=== PATIENT | female | born 1960 | race Caucasian/White ===

== ENCOUNTER 2016-06-05 17:29 | Emergency (ER) | payer SELFPAY ==
[2011-07-23 07:36] VITALS: BMI 21.9
[2016-06-05 18:26] LABS: BASOPHILS 0.2 % (0.0-2.0); EOSINOPHILS 0.8 % (0-7); HEMATOCRIT 39.6 % (36.0-48.0); HEMOGLOBIN 13.1 g/dL (12-16); IMMATURE GRANULOCYTES 0.2 % (0-5); LYMPHOCYTES 28.7 % (15-50); MCH 29.7 pg (26.0-34.0); MCHC 33.1 g/dL (31.0-37.0); MCV 89.8 fL (80.0-100.0); MEAN PLATELET VOLUME 10.7 fL (7.4-10.4); MONOCYTES 10.3 % (2-11); NEUTROPHILS 59.8 % (40-80); PLATELET COUNT 249 10x3/uL (130-400); RBC 4.41 10x6/uL (4.00-5.40); RDW 12.3 % (11.5-14.5)
[2016-06-05 18:39] LABS: ALBUMIN 4.5 g/dL (3.4-5.0); ANION GAP 10.8 mmol/L (8-16); BILIRUBIN - TOTAL 0.28 mg/dL (0.2-1.3); CARBON DIOXIDE 32.9 mmol/L (21.0-32.0); POTASSIUM - SERUM 3.7 mmol/L (3.5-5.1); PROTEIN - SERUM 8.3 g/dL (6.4-8.2)
[2016-06-05 18:53] LABS: APPEARANCE CLEAR (CLEAR); BILIRUBIN NEGATIVE (NEGATIVE); COLOR YELLOW (YELLOW); GLUCOSE NEGATIVE (NEGATIVE); KETONE NEGATIVE (NEGATIVE); LEUKOCYTE ESTERASE TRACE (NEGATIVE); NITRITE NEGATIVE (NEGATIVE); PROTEIN NEGATIVE (NEGATIVE); UROBILINOGEN NORMAL (NORMAL)
[2016-06-05 18:54] LABS: BACTERIA MANY /hpf (NONE SEEN); EPITHELIAL CELLS 0-5 /hpf (0-5); RED CELLS - URINE 0-5 /hpf (0-5)
== END 2016-06-05 19:19 | disposition left against medical advice (07) ==
LOC: D.ER 17:29
PROVIDERS: Emergency Medicine
DX: R53.1 Weakness (principal)

== ENCOUNTER 2017-12-09 17:46 | Emergency (ER) | payer MEDICAID ==
[~2017-12-09] VITALS: Ht 170.2 cm; Wt 58.6 kg
[2017-12-09 17:53] VITALS: Ht 170.2 cm; Wt 58.6 kg
[2017-12-09] MEDS ORDERED: DILANTIN100 MG (17:55)
[2017-12-09] MEDS ORDERED: HYDRALAZINE HCL10 MG (17:56)
[2017-12-09 18:33] LABS: BASOPHILS 0.3 % (0-2); EOSINOPHILS 1.3 % (0-7); HEMATOCRIT 39.8 % (36.0-48.0); HEMOGLOBIN 13.7 g/dL (12-16); LYMPHOCYTES 31.8 % (15-50); MCH 30.9 pg (26.0-34.0); MCHC 34.4 g/dL (31.0-37.0); MCV 89.8 fL (80.0-100.0); MEAN PLATELET VOLUME 10.5 fL (7.4-10.4); MONOCYTES 7.9 % (2-11); NEUTROPHILS 58.7 % (40-80); PLATELET COUNT 249 10x3/uL (130-400); RBC 4.43 10x6/uL (4.00-5.40); RDW 12.3 % (11.5-14.5); WBC 7.1 10x3/uL (4.8-10.8)
[2017-12-09 18:44] LABS: ALBUMIN 4.3 g/dL (3.4-5.0); ANION GAP 8.7 mmol/L (8-16); APTT 24.7 SECONDS (22.8-39.4); BILIRUBIN - TOTAL 0.16 mg/dL (0.2-1.3); CALCIUM 9.3 mg/dL (8.5-10.1); CARBON DIOXIDE 33.6 mmol/L (21.0-32.0); CREATININE - SERUM 0.9 mg/dL (0.6-1.3); INR 0.99 (0.85-1.17); POTASSIUM - SERUM 3.3 mmol/L (3.5-5.1); PROTEIN - SERUM 8.4 g/dL (6.4-8.2); PROTIME 12.7 SECONDS (11.6-15.0)
[2017-12-09] MEDS ORDERED: NORCO 7.5/325 T1 TA1 PO (19:33)
[2017-12-09] MEDS ORDERED: LEVOTHYROXINE75 MCG PO (19:33)
[2017-12-09 21:47] VITALS: BP 106/66
== END 2017-12-09 21:47 | disposition left against medical advice (07) ==
LOC: D.ER 17:46
PROVIDERS: Family Medicine
DX: R42 Dizziness and giddiness (principal); E87.6 Hypokalemia; R25.2 Cramp and spasm

== ENCOUNTER 2018-06-05 11:41 | Observation (INO) | payer MEDICAID ==
[~2018-06-05] VITALS: Ht 170.2 cm; Wt 60.0 kg
--- NOTE | ~2018-06-05 | OP ---
PATIENT NAME: SACHI JOE MEDICAL RECORD: [id number] :56 LOCATION:[facility] ADMISSION DATE:06/05/18 SURGEON: ADRY MANZO MD DATE OF OPERATION: 06/06/2018 PROCEDURES: Left heart catheterization, selective coronary angiography, right femoral artery approach. We were unable to advance the guide catheter through the radial catheter for probable spasm. CATHETERS: A 5-Finnish sheath, 5/4 left and right Jones, 5/4 pig. The procedure was well tolerated. The patient returned to the johnson. Sheath was removed. FINDINGS: Left ventriculography in 30-degree HUTCHINS view: Normal wall motion, normal systolic function. CORONARY ANATOMY: LEFT MAIN: Left main is free of disease. LAD: Free of disease in the diagonal system. CIRCUMFLEX: Free of disease in the marginal system. RIGHT CORONARY ARTERY: Dominant artery, gives rise to PDA, free of disease. IMPRESSION: Normal LV systolic function. Normal coronary anatomy. TRANSINT:[id number] Voice Confirmation ID: [id number] DOCUMENT ID: [id number] ADRY MANZO MD CC: [id number] DICTATION DATE: 06/06/1850 MANUFACTURING ENGINEER CHIEF: 06/06/18 1116 ADM IN [facility] [address] [place] [address]
--- NOTE | ~2018-06-05 | HEMODYNAMI ---
PATIENT:SACHI JOE MEDICAL RECORD: [id number] : 56 LOCATION:[facility] ADMISSION DATE: 06/05/18 Generatedon:06/06/20189:52 Patient name: SACHI JOE Patient #: [id number] SSN: : 1960 Date of study: 06/06/2018 Page: Of Hemodynamic Procedure Report Patient Data Patient Demographics Procedure consent was obtained First Name: SACHI Gender: Female Last Name: HEATH : 1960 Middle Initial: ROBERT Age: 57 year(s) Patient #: [id number] Race: Unknown Additional ID: [id number] Contact details Address: [address] [place] [address] State: [place] City: [facility] Zip code: [address] Past Medical History Allergies Allergen Reaction Date Comments Reported Aspirin 06/06/2018 Admission Admission Data Admission Date: 06/05/2018 Admission Time: 13:01 Room #: D.[facility]8 Height (in.): 67 BSA: 1.74 (m2) Height (cm.): 170.18 BMI: 21.97 (kg/m2) Weight (lbs.): 140.28 Weight (kg.): 63.63 Lab Results Lab Result Date: 06/06/2018 Lab Result Time: 0:00 Biochemistry Name Units Result Min Max BUN mg/dl 12 --(-*--)-- 7 18 Creatinine mg/dl 0.8 --(-*--)-- 0.6 1.3 CBC Name Units Result Min Max Hemoglobin g/dl 13.3 -*(----)-- 13.5 17.5 Procedure Procedure Types Cath Procedure Diagnostic Procedure C [facility] w/Coronaries Sedation Charges Moderate Sedation up to 15 minutes Procedure Description Procedure Date Procedure Date: 06/06/2018 Procedure Start Time: 9:32 Procedure End Time: 9:48 Procedure Staff Name Function Amos Raza MD Performing Physician Leah Tavarez RT Monitor Luh Brenner RT Scrub Cristina Melchor RN Nurse David Boland RN Inkjet Operator Procedure Data Cath Procedure Fluoroscopy Diagnostic fluoroscopy Total fluoroscopy Time: 1.7 time: 1.7 min min Diagnostic fluoroscopy Total fluoroscopy dose: 96 dose: 96 mGy mGy Contrast Material Contrast Material Type Amount (ml) Isovue 300 57 Entry Location Entry Primary Successful Side Size Upsize Upsize Entry Closure Succes sful Closure Location (Fr) 1 (Fr) 2 (Fr) Remarks Device Remarks Radial Right 6 Fr artery Short Femoral Right 5 Fr Exoseal artery Estimated blood loss: 5 ml Diagnostic catheters Device Type Used For End Catheter Placement DIAGNOSTIC Herrin 110cm 5 Procedure Fr catheter ([id number]) MULTIPACK JL 4.0 5Fr Procedure catheter MULTIPACK 3DRC 5Fr Procedure catheter MULTIPACK Pigtail 5 Fr Procedure catheter Procedure Complications No complications Procedure Medications Medication Administration Route Dosage 0.9% NaCl I.V. ml/hr Oxygen etCO2 Nasal cannula 2 l/min Lidocaine 2% added to field 20 Heparin Flush Bag added to field 2 bags (1000units/500ml NS) Radial Cocktail added to field 1 syringe (Verapomil 2mg/Nitro 400mcg/Heparin 1500units) Versed I.V. 2 mg Fentanyl I.V. 50 mcg Versed I.V. 1 mg Fentanyl I.V. 25 mcg Hemodynamics Rest BSA: 1.74 (m2) HGB: 13.3 (g/dl) O2 Consumption: Estimated: 164.98 (ml/min) O2 Co nsumption indexed: Estimated:94.82 (ml/min/m) Heart Rate: 69 (bpm) Pressure Samples Time Site Value (mmHg) Purpose Heart Use Rate(bpm) 9:44 LV 104/-7,8 Snapshot 70 Snapshots Pre Cath Intra NCS Post Cath Vital Signs Time Heart Resp SPO2 etCO2 NIBP (mmHg) Rhythm Pain Sedation Rate (ipm) (%) (mmHg) Status Level (bpm) 9:15:00 74 13 100 25 134/80(118) NSR 0 (11) 10(A) , No pain 9:19:12 70 10 100 25 133/73(105) NSR 0 (11) 10(A) , No pain 9:23:24 62 12 98 44.5 106/66(85) NSR 0 (11) 10(A) , No pain 9:27:30 65 12 97 48.4 104/62(84) NSR 0 (11) 10(A) , No pain 9:31:36 63 13 98 50.6 95/56(66) NSR 0 (11) 10(A) , No pain 9:35:37 62 14 97 52.9 88/57(81) NSR 0 (11) 9(A) , No pain 9:39:39 66 12 98 46.1 91/51(62) NSR 0 (11) 9(A) , No pain 9:43:39 71 13 97 46.1 96/62(72) NSR 0 (11) 9(A) , No pain 9:47:40 71 14 97 46.9 94/66(84) NSR 0 (11) 10(A) , No pain Medications Time Medication Route Dose Verified Delivered Reason Notes Ef fectiveness by by 9:15:30 0.9% NaCl I.V. ml/hr Amos Cristina used for Luz Marina Ruiz procedure MD KAY 9:15:37 Oxygen etCO2 2 l/min Amos Birda used for Nasal Luz Marina Ruiz procedure cannula MD KAY 9:15:43 Lidocaine 2% added 20ml Amos Trinidad for local to vial Luz Marina Luz Marina anesthetic field MD ROSE 9:15:48 Heparin Flush added 2 bags Amos Trinidad used for Bag to Luz Marina Luz Marina procedure (1000units/500ml field MD ROSE NS) 9:15:54 Radial Cocktail added 1 Amos Trinidad used for (Verapomil to syringe Luz Marina Luz Marina procedure 2mg/Nitro field MD ROSE 400mcg/Heparin 1500units) 9:27:35 Versed I.V. 2 mg Amos Cristina for Luz MarinaFlorin Melchor sedation MD KAY 9:27:40 Fentanyl I.V. 50 mcg Amos Birda for Luz MarinaFlorin Melchor sedation MD KAY 9:34:14 Versed I.V. 1 mg Amos Grimaldoyla for [facility] Florin Melchor sedation MD KAY 9:34:19 Fentanyl I.V. 25 mcg Amos Birda for [facility] Florin Melchor sedation MD KAYtransaction coordinator Log Time Note 9:00:33 David Boland RN sent for patient. Start room use. 9:04:24 Signed procedure consent form obtained from patient. 9:04:30 Diagnostic Cath status Elective 9:04:35 Time tracking: Regular hours (M-F 7:00 - 5:00) 9:04:45 Plan of Care:Hemodynamics will remain stable., Cardiac rhythm will remain stable., Comfort level will be maintained., Respiratory function will remain adequate., Patient/ family verbilizes understanding of procedure., Procedure tolerated without complication., Recovers from procedure without complications.. 9:04:59 H&P Date Dictated: 06/05/2018 H&P Addendum completed by physician on day of procedure. (MUST COMPLETE FOR ALL OUTPATIENTS). 9:05:00 Pre-procedure instructions explained to patient. 9:05:01 Pre-op teaching completed and patient verbalized understanding. 9:05:19 Patient Height : 67 inches 9:05:25 Patient Weight : 140.28 lbs 9:05:42 Patient allergic to Aspirin 9:13:52 Vital chart was started 9:14:04 Patient received from Med II to CCL 1 Alert and oriented. Tansferred to table in Supine position. 9:14:07 Warm blankets applied, and brien hugger turned on for patient comfort. 9:14:08 Correct patient and procedure confirmed by team. 9:14:27 Baseline sample Acquired. 9:14:35 Rhythm: sinus rhythm 9:14:43 Family in patients room. 9:14:50 Patient NPO since Midnight. 9:15:30 0.9% NaCl ml/hr I.V. was administered by Cristina Melchor RN; used for procedure; 9:15:37 Oxygen 2 l/min etCO2 Nasal cannula was administered by Cristina Melchor RN; used for procedure; 9:15:43 Lidocaine 2% 20ml vial added to field was administered by Amos Raza MD; for local anesthetic; 9:15:48 Heparin Flush Bag (1000units/500ml NS) 2 bags added to field was administered by Amos Raza MD; used for procedure; 9:15:54 Radial Cocktail (Verapomil 2mg/Nitro 400mcg/Heparin 1500units) 1 syringe added to field was administered by Amos Raza MD; used for procedure; 9:21:18 ECG and BP/O2 sat monitors applied to patient. 9:21:21 Full Disclosure recording started 9:21:27 Is patient on blood thinner?No 9:21:28 Patient diabetic? No. 9:21:31 Patient not . Patient is over age 55. 9:21:33 Previous problem with sedation/anesthesia? No ? 9:21:34 Snore? No 9:21:35 Sleep apnea? No 9:21:36 Deviated septum? No 9:21:37 Opens mouth fully? Yes 9:21:38 Sticks out tongue? Yes 9:21:41 Airway obstruction? Yes ASTHMA 9:21:49 Dentures? No NO TEETH 9:21:54 Modified Paresh's test Ulnar < 7 seconds 9:21:56 Patient pain scale 0/10 ?. 9:22:00 IV patent on arrival in right hand with 0.9% NaCl at [facility]. 9::23 Lab Result : BUN 12 mg/dl 9:: Lab Result : Hemoglobin 13.3 g/dl 9::23 Lab Result : Creatinine 0.8 mg/dl 9:22: Lab results completed and on chart. 9:22:30 Right Radial & Right Groin area was prepped with chlora-prep and draped in sterile fashion 9:22:31 Alarms reviewed by R. N. 9:22:31 Sharps counted by scrub and verified by R.N. 9:23:10 Use device set Radial Dx or PCI 9:23:11 ACIST Syringe (42170) opened to sterile field. 9:23:12 Bag Decanter (2002S) opened to sterile field. 9:23:12 ACIST Hand Control (15466) opened to sterile field. 9:23:13 ACIST Manifold (03890) opened to sterile field. 9:23:13 Tegaderm 4 x 4 (1626W) opened to sterile field. 9:23:15 Medline Cath Pack ([id number]) opened to sterile field. 9:23:16 DIAGNOSTIC WIRE .035 260cm J wire (218663) opened to sterile field. 9:23:16 MBrace Wrist Support ([id number]) opened to sterile field. 9:23:18 SHEATH 6FR Slender (35-5308) opened to sterile field. 9:25:57 --------ALL STOP TIME OUT------ 9:25:58 Final Timeout: patient, procedure, and site verified with staff and physician. All members of the team are in agreement. 9:26:20 Right groin site verified by team. 9:26:23 Physical assessment completed. ASA score P 2 - A patient with mild systemic disease as per Amos Raza MD. 9::26 Sedation plan: IV Moderate Sedation Medication:Versed, Fentanyl 9:27:15 Zero performed for pressure channel P1 9:27:35 Versed 2 mg I.V. was administered by Cristina Melchor RN; for sedation; 9:27:40 Fentanyl 50 mcg I.V. was administered by Cristina Melchor RN; for sedation; 9:32:01 Procedure started. 9:32:06 Local anesthetic to right radial artery with Lidocaine 2% by Amos Raza MD.INITIAL ACCESS ONLY 9:34:14 Versed 1 mg I.V. was administered by Cristina Melchor RN; for sedation; 9:34:19 Fentanyl 25 mcg I.V. was administered by Cristina Melchor RN; for sedation; 9:34:54 A 6 Fr Short sheath was inserted into the Right Radial artery 9:35:15 A DIAGNOSTIC Herrin 110cm 5 Fr catheter (406641) was advanced over the wire and used for Procedure. 9:36:31 UNABLE TO ADVANCED PAST ELBOW 9:36:33 Catheter removed. 9:37:01 Use device set Multipack Set 9:37:10 SHEATH 5FR [place] (RYT032) opened to sterile field. 9:37:12 DIAGNOSTIC Multipack 5Fr catheter set ([id number]) opened to sterile field. 9:37:23 Local anesthetic to left femerol artery with Lidocaine 2% by Amos Raza MD.ADDITIONAL ACCESS 9:37:54 A 5 Fr sheath was inserted into the Right Femoral artery 9:38:20 A MULTIPACK JL 4.0 5Fr catheter was advanced over the wire and used for Procedure. 9:41:16 LCA angiography performed. 9:41:47 Catheter removed. 9:41:55 A MULTIPACK 3DRC 5Fr catheter was advanced over the wire and used for Procedure. 9:42:47 RCA angiography performed. 9:42:51 Catheter removed. 9:42:56 A MULTIPACK Pigtail 5 Fr catheter was advanced over the wire and used for Procedure. 9:43:28 LV gram done using HUTCHINS 9:43:32 Injector settings: Ml/sec: 10, Volume: 20, 9:44:05 LV hemodynamics recorded. 9:44:13 EF : 55 % 9:44:20 Catheter removed. 9:44:38 EXOSEAL 5Fr (EX500) opened to sterile field. 9:44:51 TR BAND Standard ([id number]) opened to sterile field. 9:45:01 Sheath removed intact; hemostasis achieved with Exoseal to the Right Femoral artery. 9:45:07 Procedure ended.(Physican Out) 9:45:56 Fluoroscopy time 01.70 minutes. 9:46:00 Fluoroscopy dose: 96 mGy 9:46:00 Flurop Dose total: 96 9:46:05 Contrast amount:Isovue 300 57ml. 9:46:14 Post-op/insertion site Right Femoral artery dressed using a 4 x 4 and Tegaderm. 9:46:20 TR band inflated with 10cc of air. 9:47:01 Post-procedure physical assessment completed. ASA score P 2 - A patient with mild systemic disease as per Amos Raza MD. 9:47:06 Post procedure rhythm: sinus rhythm 9:47:09 Estimated blood loss: 5 ml 9:47:11 Post procedure instruction explained to patient.Patient verbalizes understanding. 9:47:12 Patient needs reinforcement of post procedure teaching. 9:47:40 Procedure type changed to Cath procedure, Diagnostic procedure, LHC, LHC w/Coronaries, Sedation Charges, Moderate Sedation up to 15 minutes 9:48:20 Procedure and supply charges have been captured, reviewed, submitted and are correct. 9:48:23 Procedure Complication : No complications 9:48:26 Vital chart was stopped 9:48:27 See physician's report for complete and final results. 9:48:29 Report given to Pre/Post Procedure Room. 9:48:32 Patient transfered to ED with Bed. 9:48:34 Procedure ended. 9:48:34 Full Disclosure recording stopped 9:48:36 End room use (Document Last) Device Usage Item Name Manufacture Quantity Catalog Hospital Part Current Minimal Lot# / Number Charge Number Stock Stock Serial# Code ACIST Acist 1 53919 224898 245730 540000 20 Syringe Medical (92483) Systems Inc Bag Microtek 1 717752 32962 179369 5 Decanter Medical Inc. () ACIST Hand Acist 1 66774 665283 001489 003280 5 Control Medical (46039) Systems Inc ACIST Acist 1 59126 191920 152507 958819 5 Manifold Medical (12911) Systems Inc Tegaderm 4 3M 1 1626W 195218 660774 112549 5 x 4 (1626W) Medline Medline 1 [id number] 720184 23074 872055 5 Cath Pack ([id number]) DIAGNOSTIC St Terence 1 570332 657511 431560 967590 30 WIRE .035 260cm J wire (581502) MBrace Advanced 1 140-0250-00 850630 31085 821170 5 Wrist Vascular Support Dynamics ([id number]) SHEATH 6FR Terumo 1 [id number] 129490 817316 959123 5 Slender (80-1060) DIAGNOSTIC Terumo 1 40-5013 870851 136143 277065 5 Herrin 110cm 5 Fr catheter (671975) SHEATH 5FR Terumo 1 QRA226 800304 635093 650930 5 [place] (PQZ702) DIAGNOSTIC Cardinal 1 QO4162 190244 03049 549988 30 Multipack Health 5Fr catheter set (RL0549) MULTIPACK Cardinal 1 490177 5 JL 4.0 5Fr Health catheter MULTIPACK Cardinal 1 861391 5 3DRC 5Fr Health catheter MULTIPACK Cardinal 1 600465 5 Pigtail 5 Health Fr catheter EXOSEAL 5Fr Cardinal 1 EX500 053572 821127 997054 10 (EX500) Health TR BAND Terumo 1 [id number] 298720 471074 062772 40 Standard ([id number]) Signature Audit [place] Stage Time Signature Unsigned Intra-Procedure 06/06/2018 Leah Tavarez 9:52:09 AM RT(R) Signatures Monitor : Leah Tavarez Signature : RT Date : Time : [facility] [address] [facility] [place] [address]
[~2018-06-05 11:41] MED LIST: DILANTIN100 MG PO; HYDRALAZINE HCL10 MG; LEVOTHYROXINE75 MCG PO; NORCO 7.5/325 T1 TA1 PO
--- NOTE | 2018-06-05 12:03 | NUR ---
PT UNABLE TO HAVE ASA D/T ALLERGY. EDP NOTIFIED AND NURSE RECEIVED VERBAL ORDER FOR PLAVIX PO.
--- NOTE | 2018-06-05 12:12 | NUR ---
PT STATES 10/10 CHEST PAIN PRIOR TO NTG.
--- NOTE | 2018-06-05 12:17 | NUR ---
PT STATES PAIN IS 7/10 AFTER 1ST NTG
--- NOTE | 2018-06-05 12:27 | NUR ---
PT STATES SHE IS PAIN FREE AFTER 2ND NTG. WILL CONTINUE TO MONITOR.
[2018-06-05 12:43] LABS: HEMATOCRIT 38.6 % (36.0-48.0); HEMOGLOBIN 13.3 g/dL (12-16); LYMPHOCYTES 20.7 % (15-50); MCH 31.1 pg (26.0-34.0); MCHC 34.5 g/dL (31.0-37.0); MCV 90.2 fL (80.0-100.0); MEAN PLATELET VOLUME 10.6 fL (7.4-10.4); NEUTROPHILS 70.4 % (40-80); PLATELET COUNT 209 10x3/uL (130-400); RBC 4.28 10x6/uL (4.00-5.40); RDW 12.4 % (11.5-14.5); WBC 6.4 10x3/uL (4.8-10.8)
[2018-06-05 12:47] LABS: APTT 26.5 SECONDS (22.8-39.4)
[2018-06-05 12:48] LABS: ALBUMIN 4.1 g/dL (3.4-5.0); ALKALINE PHOSPHATASE 119 U/L (46-116); ALT (SGPT) 15 U/L (10-68); BILIRUBIN - TOTAL 0.21 mg/dL (0.2-1.3); CALC OSMOLALITY 280 mosm/kg (275-300); CALCIUM 9.2 mg/dL (8.5-10.1); CHLORIDE - SERUM 103 mmol/L (98-107); CREATININE - SERUM 0.8 mg/dL (0.6-1.3); GLUCOSE 96 mg/dL (74-106); POTASSIUM - SERUM 4.1 mmol/L (3.5-5.1); SODIUM 141 mmol/L (136-145); UREA NITROGEN 12 mg/dL (7-18); eGFR NON AFRICAN AMERICAN 78 mL/min (90-120)
[2018-06-05 12:53] LABS: INR 0.93 (0.85-1.17)
[2018-06-05 13:00] VITALS: BP 145/73
[2018-06-05 13:02] LABS: CREATINE KINASE 61 UL (21-215); MAGNESIUM - SERUM 2.1 mg/dL (1.8-2.4); TROPONIN-I < 0.017 ng/mL (0.000-0.060)
[2018-06-05 13:25] LABS: CKMB 0.5 U/L (0.0-3.6)
[2018-06-05 14:17] LABS: CKMB 0.5 U/L (0.0-3.6); CREATINE KINASE 65 UL (21-215)
[2018-06-05 14:18] LABS: TROPONIN-I < 0.017 ng/mL (0.000-0.060)
--- NOTE | 2018-06-05 15:30 | NUR ---
PT RESTING COMFORTABLY AT BED. IVF INFUSING WITHOUT SIGNS OF INFILTRATION. DAUGHTER AT BS. DENIES NEEDS AT THIS TIME. WILL CONT TO MONITOR.
[2018-06-05 16:00] VITALS: BP 128/60
--- NOTE | 2018-06-05 16:43 | NUR ---
PT C/O CHEST PAIN RADIATING DOWN LEFT ARM 02/03. NTG GIVEN. PINK, WARM, DRY. NAD. NSR. ON MONITOR.
[2018-06-05 17:00] VITALS: BP 115/93
--- NOTE | 2018-06-05 17:05 | NUR ---
PT STATES PAIN IS RELIEVED AT THIS TIME. WILL CONTINUE TO MONITOR.
[2018-06-05 18:00] VITALS: BP 124/67
--- NOTE | 2018-06-05 18:46 | NUR ---
PT STATES SHE WISHES TO GO HOME TO TAKE CARE OF HER . FAMILY @ REASSURING HER THAT THEY WILL CARE FOR HER . PT NOW WILLING TO STAY.
[2018-06-05 19:14] VITALS: BP 135/63
[2018-06-05 20:00] VITALS: BP 152/73
[2018-06-05 20:33] LABS: CKMB 0.9 U/L (0.0-3.6); CREATINE KINASE 58 UL (21-215); TROPONIN-I < 0.017 ng/mL (0.000-0.060)
--- NOTE | 2018-06-05 22:38 | NUR ---
PT COMPLAINS OF PAIN AND DISCOMFORT. MORPHINE GIVEN ORDERED. PT HAS FAMILY AT BEDSIDE. PT BEDLOW AND CALL LIGHT IN REACH. WILL CPOC
--- NOTE | 2018-06-06 03:57 | NUR ---
PT ASLEEP. DENIES ANY NEEDS. BEDLOW AND CALL LIGHT IN REACH . PT WILL CALL FOR ASSIST WHEN NEEDED. DAUGHTER WENT HOME AND WILL COME BACK LATER TODAY. PT HAS NO S/S OF DISTRESS. WILL CPOC
[2018-06-06 04:00] VITALS: BP 105/59
[2018-06-06 04:23] LABS: BASOPHILS 0.2 % (0-2); EOSINOPHILS 3.3 % (0-7); HEMATOCRIT 35.7 % (36.0-48.0); HEMOGLOBIN 12.1 g/dL (12-16); IMMATURE GRANULOCYTES 0.2 % (0-5); LYMPHOCYTES 37.2 % (15-50); MCH 30.9 pg (26.0-34.0); MCHC 33.9 g/dL (31.0-37.0); MCV 91.1 fL (80.0-100.0); MEAN PLATELET VOLUME 10.4 fL (7.4-10.4); MONOCYTES 10.1 % (2-11); PLATELET COUNT 245 10x3/uL (130-400); RBC 3.92 10x6/uL (4.00-5.40); RDW 12.9 % (11.5-14.5); WBC 5.5 10x3/uL (4.8-10.8)
[2018-06-06 04:44] LABS: ALBUMIN 3.3 g/dL (3.4-5.0); ALKALINE PHOSPHATASE 108 U/L (46-116); ALT (SGPT) 15 U/L (10-68); BILIRUBIN - TOTAL 0.21 mg/dL (0.2-1.3); CALC OSMOLALITY 280 mosm/kg (275-300); CALCIUM 8.7 mg/dL (8.5-10.1); CHLORIDE - SERUM 105 mmol/L (98-107); CHOL - HDL RATIO 1.8 ratio (2.3-4.1); CHOLESTEROL, TOTAL 152 mg/dL (0-200); CKMB 0.2 U/L (0.0-3.6); CREATINE KINASE 55 UL (21-215); CREATININE - SERUM 0.9 mg/dL (0.6-1.3); GLUCOSE 103 mg/dL (74-106); HDL CHOLESTEROL 83 mg/dL (32-96); LDL CHOLESTEROL 55 mg/dL (0-100); LDL-HDL RATIO 0.7 ratio (1.5-3.5); PROTEIN - SERUM 6.9 g/dL (6.4-8.2); SODIUM 141 mmol/L (136-145); TRIGLYCERIDE 73 mg/dL (30-200); UREA NITROGEN 12 mg/dL (7-18); eGFR NON AFRICAN AMERICAN 68 mL/min (90-120)
[2018-06-06 04:49] LABS: TROPONIN-I < 0.017 ng/mL (0.000-0.060)
--- NOTE | 2018-06-06 04:54 | NUR ---
PT RESTING IN BED. NO S/S OF DISTRESS. WILL CPOC
[2018-06-06 05:05] VITALS: BP 152/73; Ht 170.2 cm; Wt 60.0 kg
[2018-06-06 09:02] VITALS: BP 124/70
--- NOTE | 2018-06-06 09:10 | NUR ---
PRE-OPS GIVEN. TO VOCAL MUSIC INSTRUCTOR BY BED.
--- NOTE | 2018-06-06 10:15 | NUR ---
FAMILY AT BEDSIDE. THEY REPORT DR. MANZO CAME AND SPOKE WITH THEM IN THEIR ROOM DOWNSTAIRS. PT IS RESTING COMFORTABLY. RIGHT GROIN DRESSING C/D/I. NO S/S OF HEMATOMA NOTED. RIGHT RADIAL TR BAND IN PLACE. NO BLEEDING/HEMATOMA NOTED.
--- NOTE | 2018-06-06 10:45 | NUR ---
RIGHT GROIN DRESSING C/D/I. NO HEMATOMA NOTED RIGHT WRIST TR BAND IN PLACE. NO BLEEDING/HEMATOMA
--- NOTE | 2018-06-06 11:00 | NUR ---
HEAD OF BED INC TO 30 DEGREES. RIGHT GROIN DRESSING C/D/I. NO HEMATOMA. REMOVED 2 CC FROM RIGHT WRIST TR BAND. NO BLEEDING/HEMATOMA NOTED. PT SET UP WITH COFFEE AND SANDWICH TRAY. ALERT AND FOLLOWING COMMANDS. VSS
--- NOTE | 2018-06-06 11:20 | NUR ---
3CC OF AIR REMOVED FROM TR BAND. NO BLEEDING/HEMATOMA NOTED. VSS
--- NOTE | 2018-06-06 11:45 | NUR ---
RIGHT HAND PIV D/C'D WITH CATH TIP INTACT. TOLERATED WELL. RIGHT GROIN DRESSING C/D/I. NO S/S OF HEMATOMA NOTED. 3cc REMOVED FROM RIGHT RADIAL TR BAND. NO BLEEDING/HEMATOMA NOTED. PT INSTRUCTED TO GET UP AND GET DRESSED. FAMILY AT BEDSIDE.
--- NOTE | 2018-06-06 11:50 | NUR ---
TR BAND REMOVED. DRESSING APPLIED. NO HEMATOMA OR BLEEDING NOTED.
--- NOTE | 2018-06-06 12:00 | NUR ---
DISCUSSED DISCHARGE INSTRUCTIONS WITH PT AND PT'S FAMILY. THEY VOICED UNDERSTANDING. RIGHT RADIAL DRESSING C/D/I. NO S/S OF HEMATOMA NOTED. WRIST BRACE IN PLACE. PT INSTRUCTED TO KEEP ON FOR 2 HOURS ONCE HOME AND THEN MAY REMOVE. PT TAKEN DOWN BY WHEELCHAIR TO VEHICLE. NO S/S OF DISTRESS NOTED. THEY REPORT THEY HAVE ALL BELONGINGS AND PAPERWORK IN HAND.
== END 2018-06-06 12:00 | disposition home or self-care (01) ==
LOC: D.ER 11:41 → OBSVTIME 13:01 → D.EDHOLD 13:01 → D.M2 18:12 → D.CLR 06-06 09:48
PROVIDERS: Family Medicine; ADMIT Internal Medicine Interventional Cardiology
DX: R07.9 Chest pain, unspecified (principal); Z86.73 Personal history of transient ischemic attack (TIA), and cerebral infarction without residual deficits; I10 Essential (primary) hypertension; J43.9 Emphysema, unspecified